=== PATIENT | female | born 1960 | race Caucasian/White ===

== ENCOUNTER → 2021-03-08 16:50 | Outpatient (CLI) | payer OTHER, SELFPAY ==
--- NOTE | ~2021-03-08 | MM_ITS ---
EXAMINATION: MM screening [facility] w maxine HISTORY: Screening mammogram TECHNIQUE: Craniocaudal and mediolateral oblique 3-D tomosynthesis images were obtained and synthetic 2-D images were generated. CAD analysis was submitted and interpreted. COMPARISON: 09/22/2019, 08/12/2018, 04/28/2016 bilateral digital screening mammogram examinations BREAST PARENCHYMAL COMPOSITION: The breasts are almost entirely fatty. FINDINGS: Chronic benign occasional calcifications. There is no evidence of suspicious mass, calcific ation, or architectural distortion to suggest malignancy in either breast. There has been no suspicio us interval change. IMPRESSION: 1. No mammographic evidence of malignancy. 2. Recommend routine screening mammography in one year. BI-RADS Category 2: Benign finding(s). Reviewed, dictated and finalized at location A.
== END ==
PROVIDERS: PCP Physician Assistant; Visit Provider Physician Assistant
DX: Z12.31 Encounter for screening mammogram for malignant neoplasm of breast (principal)
CPT/HCPCS: 77063; 77067

== ENCOUNTER → 2022-04-26 14:59 | Outpatient (CLI) | payer OTHER, SELFPAY ==
--- NOTE | ~2022-04-26 | MM_ITS ---
EXAMINATION: MM screening [facility] w [facility] HISTORY: Screening mammogram TECHNIQUE: Craniocaudal and mediolateral oblique 3-D tomosynthesis images were obtained and synthetic 2-D images were generated. CAD analysis was submitted and interpreted. COMPARISON: 03/08/2021, 09/22/2019, 08/12/2018 bilateral screening mammogram examinations BREAST PARENCHYMAL COMPOSITION: The breasts are almost entirely fatty. FINDINGS: Chronic occasional benign calcifications. There is no evidence of suspicious mass, calcific ation, or architectural distortion to suggest malignancy in either breast. There has been no suspicio us interval change. IMPRESSION: 1. No mammographic evidence of malignancy. 2. Recommend routine screening mammography in one year. BI-RADS Category 2: Benign finding(s). Reviewed, dictated and finalized at location B.
== END ==
PROVIDERS: PCP Physician Assistant; Visit Provider Physician Assistant
DX: Z12.31 Encounter for screening mammogram for malignant neoplasm of breast (principal)
CPT/HCPCS: 77063; 77067

== ENCOUNTER → 2023-07-09 12:21 | Outpatient (CLI) | payer OTHER, SELFPAY ==
--- NOTE | ~2023-07-09 | MM_ITS ---
EXAMINATION: MM screening [facility] w [facility] HISTORY: Screening mammogram TECHNIQUE: Craniocaudal and mediolateral oblique 3-D tomosynthesis images were obtained and synthetic 2-D images were generated. CAD analysis was submitted and interpreted. COMPARISON: 04/26/2022, 03/08/2021, 09/22/2019 bilateral screening mammogram examinations BREAST PARENCHYMAL COMPOSITION: The breasts are almost entirely fatty. FINDINGS: There is no evidence of suspicious mass, calcification, or architectural distortion to sugg est malignancy in either breast. There has been no suspicious interval change. IMPRESSION: 1. No mammographic evidence of malignancy. 2. Recommend routine screening mammography in one year. BI-RADS Category 1: Negative Reviewed, dictated and finalized at location A.
== END ==
PROVIDERS: PCP Physician Assistant; Visit Provider Physician Assistant
DX: Z12.31 Encounter for screening mammogram for malignant neoplasm of breast (principal)
CPT/HCPCS: 77063; 77067

== ENCOUNTER 2024-04-11 10:12 | Emergency (ER) | payer MEDICARE, SELFPAY ==
[2024-04-11 10:43] VITALS: BP 135/67; PULSE 91; RESP 16; TEMP 36.3; O2SAT 100
--- NOTE | 2024-04-11 11:02 | ED.SKABFB ---
HPI - Skin/Abscess/Foreign Bdy General Chief complaint: Skin/Abscess/Foreign Body Stated complaint: right ankle rash Time Seen by Provider: 04/11/24 10:47 Source: patient and RN notes reviewed Mode of arrival: ambulatory Limitations: no limitations History of Present Illness HPI narrative: Patient presents today complaining of redness and rash to the right lower leg. She had a punch biopsy to the anterior lower leg 10 days ago and had some care instructions. Reports she had been applying a large Band-Aid to the area after cleaning it twice daily. Reports a few days ago she noted some redness and bumps to the area, likely an allergic reaction, so she had changed brands of adhesive bandage, but symptoms have not improved. Related Data Home Medications Medication Instructions Recorded Confirmed lovastatin 10 mg tablet 10 mg PO HS 04/11/24 04/11/24 Allergies Allergy/AdvReac Type Severity Reaction Status Date / Time No Known Allergies Allergy Unverified 05/09/15 10:17 Review of Systems Review of Systems: CONSTITUTIONAL: Denies body aches, fever, chills, or sweats. EYES: Denies visual changes, redness, or discharge. ENT: Denies rhinorrhea, congestion, sore throat, or otalgia. CARDIOVASCULAR: Denies chest pain, palpitations, or edema. RESPIRATORY: Denies cough or dyspnea. GASTROINTESTINAL: Denies abdominal pain, nausea, vomiting, or diarrhea. GENITOURINARY: Denies dysuria or hematuria. SKIN: Rash right lower leg MUSCULOSKELETAL: Denies back pain, joint pain, or myalgia. NEUROLOGIC: Denies headache, numbness, tingling, or weakness. PSYCH: Denies depression or anxiety. PMFSH Comments At time of signature, I have reviewed and agree with nursing past medical, surgical, social and family history unless otherwise noted. Please see nursing chart for further information. There is no relevant family history pertinent to the presenting complaint Exam Narrative: GENERAL: Well-appearing, well-nourished, and in no acute distress. HEAD: Normocephalic, atraumatic. EYES: EOMI. No redness or drainage. Conjunctivae normal. ENT: Mucous membranes pink and moist. NECK: Normal AROM. CHEST: No respiratory distress. EXTREMITIES: Normal range of motion. No edema. SKIN: Warm, dry. Capillary refill normal. Normal skin turgor. Large punch biopsy area to the anterior lower leg surrounded with some hyperpigmentation and erythematous maculopapular rash in the shape of a large adhesive dressing. No edema or erythema to suggest infection. NEURO: No focal deficits. Alert and oriented x3. Gait steady. PSYCH: Normal affect. No signs of depression or anxiety. Course Course Level of Care: Express Care Visit Vital Signs Vital signs: Vital Signs Temperature 97.4 F L 04/11/24 10:43 Pulse Rate 91 04/11/24 10:43 Respiratory Rate 16 04/11/24 10:43 Blood Pressure 135/67 04/11/24 10:43 Pulse Oximetry 100 04/11/24 10:43 Oxygen Delivery Room Air 04/11/24 10:43 Temperature 97.4 F L 04/11/24 10:43 Pulse Rate 91 04/11/24 10:43 Respiratory Rate 16 04/11/24 10:43 Blood Pressure 135/67 04/11/24 10:43 Pulse Oximetry 100 04/11/24 10:43 Oxygen Delivery Room Air 04/11/24 10:43 Reviewed MDM - Skin/Abscess/Foreign Bdy MDM Narrative Medical decision making narrative: Exam is consistent with contact dermatitis surrounding punch biopsy sites. Patient is having a hard time keeping and nonadherent dressing in place. New dressing has been applied at [facility] with instructions given to patient. ED precautions given Differential Diagnosis Differential diagnosis: Likely abscess of skin or subcutaneous tissue, cellulitis, eczema and contact dermatitis Critical Care Time Critical Care Time Critical Care Time: No Discharge Plan Discharge Clinical Impression: Contact dermatitis Qualifiers: Contact dermatitis type: unspecified Contact dermatitis trigger: adhesive Qualified Code(s): L23.1 - Allerg
== END 2024-04-11 11:10 | disposition home or self-care (01) ==
PROVIDERS: Emergency Provider Nurse Practitioner
DX: L23.1 Allergic contact dermatitis due to adhesives (principal); E78.00 Pure hypercholesterolemia, unspecified
CPT/HCPCS: 99211; G0463

== ENCOUNTER 2024-10-07 12:39 | Outpatient (CLI) | payer MEDICARE, SELFPAY ==
--- NOTE | ~2024-10-07 | MM_ITS ---
EXAMINATION: MM screening [facility] BI w maxine HISTORY: Screening TECHNIQUE: Craniocaudal and mediolateral oblique 3-D tomosynthesis images were obtained and synthetic 2-D images were generated. CAD analysis was submitted and interpreted. COMPARISON: Comparison to multiple prior studies sequentially, with oldest reviewed study dated 04/28. BREAST PARENCHYMAL COMPOSITION: Not dense: There are scattered areas of fibroglandular density. FINDINGS: There is no evidence of suspicious mass, calcification, or architectural distortion to sugg est malignancy in either breast. There has been no suspicious interval change. IMPRESSION: 1. No mammographic evidence of malignancy. 2. Recommend routine screening mammography in one year. BI-RADS Category 1: Negative Reviewed, dictated and finalized at location A. T IRONER
== END 2024-10-07 12:40 | disposition home or self-care (01) ==
LOC: MICIMG 12:41
PROVIDERS: Visit Provider Physician Assistant
DX: Z12.31 Encounter for screening mammogram for malignant neoplasm of breast (principal)
CPT/HCPCS: 77063; 77067

== ENCOUNTER 2025-03-25 13:33 | Outpatient (CLI) | payer MEDICARE, SELFPAY ==
--- NOTE | ~2025-03-25 | DEXA_ITS ---
Bone Density Report Name: FALLON JULES Age: 64 Sex: Female Ethnicity: White Date of : 1960 Indication: postmenopausal; screening for osteoporosis; height loss; Referring Provider: KAISER, MARIBEL Study: Bone densitometry was performed. Exam Date: March 25, 2025 Accession number: [id number] Bone Density: Region BMD T-score Z-score Classification AP Spine(L1, L2, L3) 1.256 2.2 4.0 Normal Femoral Neck (Left) 0.978 1.2 2.7 Normal Total Hip (Left) 0.964 0.2 1.5 Normal Femoral Neck (Right) 0.959 1.0 2.6 Normal Total Hip (Right) 0.956 0.1 1.4 Normal Total Hip Mean 0.960 0.2 1.5 Normal World Health Organization criteria for BMD impression classify patients as: Normal (T-score at or above -1.0), Osteopenia (T-score between -1.0 and -2.5), or Osteoporosis (T-score at or below -2.5). 10-year Fracture Risk: FRAX not reported because: All T-scores for Spine Total, Hip Total, Femoral Neck at or above -1.0 Clinical Information Provided by Patient: Has used the following medications: Vitamin D, Calcium Patient maximum height was 66 Menopause Age: 50 No regular weight bearing exercise Drinks caffeinated beverages Onset of menses at age 10 Number of children 1 Impression: The patient has normal bone mass. Discussion: BONE DENSITY IS ABOVE THE MINIMUM DESIRABLE LEVEL AT ALL SKELETAL SITES TESTED. This patient?s bone mineral density is above the minimum desirable level (T-score -1.0 or better) at all sites measured. The patient should follow a healthful lifestyle (good nutrition with adequate calcium and vitamin D, and appropriate weight-bearing exercise). Follow-Up: Consider repeating this study in 5 years or sooner if there is some new clinical indication. Reported by: NEGRO on 03/25/2025 2:18:00 PM. Reviewed, dictated and finalized at location A.
--- OUTSIDE RECORDS SUMMARY | 2025-03-25 13:40 | XMS_ITS | Clinical Summary ---
Author Organization [facility] Address [address] [place] [id number] Care Team Providers Care Kayak Maker Name Role Phone Unavailable Primary Care Provider Unavailabl e Social History Tobacco Use Types Packs/Day Years Used Date Smoking Tobacco: Never Assessed Comments Unknown Sex and Gender Information Value Date Recorded Sex Assigned at Not on file Legal Sex Female 7:14 PM CDT Gender Identity Not on file Sexual Orientation Not on file Last Filed Vital Signs Vital Sign Reading Time Taken Comments Blood Pressure 122/84 05/27/2017 4:04 PM CDT Pulse 68 05/27/2017 4:04 PM CDT Temperature - - Respiratory Rate - - Oxygen Saturation - - Inhaled Oxygen Concentration - - Weight 84.8 kg (187 lb) 05/27/2017 4:04 PM CDT Height 170.2 cm (5' 7) 05/27/2017 4:04 PM CDT Body Mass Index 29.29 05/27/2017 4:04 PM CDT Plan of Treatment Health Maintenance Due Date Last Done Comments Colorectal Cancer Screening Colonoscopy (10 Years) 1958 Hepatitis C 1976 DTaP, Tdap and Td Vaccines ( 1 - Tdap) 1977 Mammogram Screening 1998 Pneumococcal Vaccine: 50+ Ye ars (1 of 1 - PCV) 2008 Zoster Vaccines (1 of 2) 2008 Dexa Scan (General) 12/23/2023 COVID-19 Vaccine ( - 2023-2 5 season) 2024 RSV Immunization or 60+ Years (1 - 1-dose 75+ series) 2033 Meningococcal B Vaccine Aged Out No l onger eligible based on patient's age to complete this topic Meningococcal Vaccine Aged Out No elvi chrissy eligible based on patient's age to complete this topic RSV Immunizations Under 20 Months Aged Out No longer eligible based on patient's age to complete this topic
--- OUTSIDE RECORDS SUMMARY | 2025-03-25 13:40 | XMS_ITS | Data Portability ---
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 due next year. due for pneumonia vaccine RSV due covid booster due Mammogram due. pap smear due eye exam updated. just got new glasses. wrinkle in retina and astigmatism. dental visit UTD recently. Not available 02/27/2024 10:39:28 03/15/2025 03/15/2025 Tdap up-to-date I examined dental up-to-date Not available 03/15/2025 10:46:56 Plan of Treatment Reminders Order Date Submit Date Provider Last Modified By Organization Details Last Modified Time Details Appointments ANY 15 2025 09:30A M JOAN Camarena Not available Not available Not available Lab CBC w/ auto diff 2024 025 [facility], [address], [address], [place], [address], 03/19/2025 07:07:32 hepatic function panel, serum 2024 025 [facility], [address], [address], [place], [address], 03/19/2025 07:07:29 BMP, serum or plasma 2024 025 [facility], [address], [address], [place], [address], 03/19/2025 07:07:31 TSH + free T4, serum 2024 025 [facility], [address], [address], [place], [address], 03/19/2025 07:07:28 lipid panel, serum 2024 025 [facility], [address], [address], [place], [address], 03/19/2025 07:07:27 CBC w/ auto diff 2023 024 [facility], [address], [address], [place], [address], 03/17/2024 12:36:51 hepatic function panel, serum 2023 024 [facility], [address], [address], [place], [address], 03/17/2024 12:36:50 BMP, serum or plasma 2023 024 [facility], [address], [address], [place], [address], 03/17/2024 12:36:50 TSH + free T4, serum 2023 024 [facility], [address], [address], [place], [address], 03/17/2024 12:36:49 lipid panel, serum 2023 024 [facility], [address], [address], [place], [address], 03/17/2024 12:36:49 noninvasi ve colorecta l cancer DNA + occult blood screening , QL, stool 2023 024 [facility] (Cologuard Orders Only), [address], [address], [place], [address], 04/17/2024 06:29:32 Referral dermatolo gist referral 2023 024 [email or web address], [facility] [place], [address], 07/03/2024 10:22:00 Procedures None recorded. Surgeries None recorded. Imaging MAMMO, screening , digital, bilateral 2024 026 [email or web address] [facility], [address], [address], [place], [address], 03/15/2025 11:52:40 MAMMO, screening , digital, bilateral 2023 024 [facility], [address], [address], [place], [address], 11/26/2024 17:31:17 DEXA 2023 024 [email or web address], [address], [address], [place], [address], 03/15/2025 10:28:44 Medication Orders None recorded. Patient TargetsNo targets recorded. Patient Instructions Encounter Date Encounter Id Patient Instructions Last Modified By Organization Details Last Modified Time 02/27/2024 [id number] preventing falls : care instructions Not available 02/27/2024 11:10:13 Medicare Wellnes s Preventive Checklist Not available 02/27/2024 11:10:13 A healthy lifestyle: care instructions Not available 02/27/2024 11:10:13 03/15/2025 [id number] A healthy lifestyle: care instructions Not available 03/15/2025 10:46:22 Reason for Referral Research Subject Referral for L esion of skin of face Referring Physician: Leena Gonzalez, Internal Medicine, Encounter Date: 02/27/2024 Results Created Date Observation Date Name Description Value Unit Range Abnormal Flag Note LastModifiedBy Organization Detail LastModifiedTime 03/16/20 24 03/17/2024 TSH+F REE T4 TSH 1.750 uIU/m L 0.450- 4.500 Not Available [facility] ([facility]) [address] [place], [address], 03/17/2024 12:36:49 03/16/20 24 03/17/2024 TSH+F REE T4 T4,free(dire ct) 0.96 NG/dL 0.82-1 .77 Not Available [facility] ([facility]) [address] [place], [address], 03/17/2024 12:36:49 03/16/20 24 03/17/2024 LIPID PANEL cholesterol, total 184 mg/dL 100-19 9 Not Available [facility] ([facility]) [address] [place], [address], 03/17/2024 12:36:49 03/16/20 24 03/17/2024 LIPID PANEL triglyceride s 247 mg/dL 0-149 above high normal Not Available [facility] ([facility]) [address] [place], [address], 03/17/2024 12:36:49 03/16/20 24 03/17/2024 LIPID PANEL HDL cholesterol 41 mg/dL >39 Not Available [facility] ([facility]) [address] [place], [address], 03/17/2024 12:36:49 03/16/20 24 03/17/2024 LIPID PANEL VLDL cholesterol joshua 42 mg/dL 5-40 above high normal Not Available [facility] ([facility]) [address] [place], [address], 03/17/2024 12:36:49 03/16/20 24 03/17/2024 LIPID PANEL LDL chol calc ([facility]) 101 mg/dL 0-99 above high normal Not Available [facility] ([facility]) [address] [place], [address], 03/17/2024 12:36:49 03/16/20 24 03/17/2024 HEPAT IC FUNCT ION PANEL (7) protein, total 6.9 g/dL 6.0-8. 5 Not Available [facility] ([facility]) [address] [place], [address], 03/17/2024 12:36:50 03/16/20 24 03/17/2024 HEPAT IC FUNCT ION PANEL (7) albumin 4.6 g/dL 3.9-4. 9 Not Available [facility] ([facility]) [address] [place], [address], 03/17/2024 12:36:50 03/16/20 24 03/17/2024 HEPAT IC FUNCT ION PANEL (7) bilirubin, total 0.4 mg/dL 0.0-1. 2 Not Available [facility] ([facility]) [address] [place], [address], 03/17/2024 12:36:50 03/16/20 24 03/17/2024 HEPAT IC FUNCT ION PANEL (7) bilirubin, direct 0.11 mg/dL 0.00-0 .40 Not Available [facility] ([facility]) [address] [place], [address], 03/17/2024 12:36:50 03/16/20 24 03/17/2024 HEPAT IC FUNCT ION PANEL (7) alkaline phosphatase 81 IU/L 44-121 Not Available [facility] ([facility]) [address] [place], [address], 03/17/2024 12:36:50 03/16/20 24 03/17/2024 HEPAT IC FUNCT ION PANEL (7) AST (SGOT) 27 IU/L 0-40 Not Available [facility] ([facility]) [address] [facility] [place], [address], 03/17/2024 12:36:50 03/16/20 24 03/17/2024 HEPAT IC FUNCT ION PANEL (7) ALT (SGPT) 39 IU/L 0-32 above high normal Not Available [facility] ([facility]) [address] [facility], [address], 03/17/2024 12:36:50 03/16/20 24 03/17/2024 BMP7+ EGFR glucose 88 mg/dL 70-99 Not Available [facility] ([facility]) [address] [facility], [address], 03/17/2024 12:36:50 03/16/20 24 03/17/2024 BMP7+ EGFR BUN 19 mg/dL 8-27 Not Available [facility] ([facility]) [address] [facility] [place], [address], 03/17/2024 12:36:50 03/16/20 24 03/17/2024 BMP7+ EGFR creatinine 1.02 mg/dL 0.57-1 .00 above high normal Not Available [facility] ([facility]) [address] [facility] [place], [address], 03/17/2024 12:36:50 03/16/20 24 03/17/2024 BMP7+ EGFR eGFR 61 mL/mi n/1.7 3 >59 Not Available [facility] ([facility]) [address] [facility] [place], [address], 03/17/2024 12:36:50 03/16/20 24 03/17/2024 BMP7+ EGFR sodium 141 mmol/ L 134-14 4 Not Available [facility] ([facility]) [address] [facility] [place], [address], 03/17/2024 12:36:50 03/16/20 24 03/17/2024 BMP7+ EGFR potassium 4.6 mmol/ L 3.5-5. 2 Not Available [facility] ([facility]) [address] [facility], [place], [address], 03/17/2024 12:36:50 03/16/20 24 03/17/2024 BMP7+ EGFR chloride 103 mmol/ L 96-106 Not Available [facility] ([facility]) [address] [facility], [place], [address], 03/17/2024 12:36:50 03/16/20 24 03/17/2024 BMP7+ EGFR carbon dioxide, total 25 mmol/ L 20-29 Not Available [facility] ([facility]) [address] [facility], [place], [address], 03/17/2024 12:36:50 03/16/20 24 03/17/2024 CBC WITH DIFFE RENTI AL/PL ATELE T WBC 4.7 x10e3 /uL 3.4-10 .8 Not Available [facility] ([facility]) [address] [facility], [place], [address], 03/17/2024 12:36:51 03/16/20 24 03/17/2024 CBC WITH DIFFE RENTI AL/PL ATELE T RBC 4.58 x10e6 /uL 3.77-5 .28 Not Available [facility] ([facility]) [address] [facility], [place], [address], 03/17/2024 12:36:51 03/16/20 24 03/17/2024 CBC WITH DIFFE RENTI AL/PL ATELE T hemoglobin 13.7 g/dL 11.1-1 5.9 Not Available [facility] ([facility]) [address] [facility], [place], [address], 03/17/2024 12:36:51 03/16/20 24 03/17/2024 CBC WITH DIFFE RENTI AL/PL ATELE T hematocrit 41.4 % 34.0-4 6.6 Not Available [facility] ([facility]) [address] [place], [address], 03/17/2024 12:36:51 03/16/20 24 03/17/2024 CBC WITH DIFFE RENTI AL/PL ATELE T MCV 90 fL 79-97 Not Available [facility] ([facility]) [address] [facility], [place], [address], 03/17/2024 12:36:51 03/16/20 24 03/17/2024 CBC WITH DIFFE RENTI AL/PL ATELE T MCH 29.9 pg 26.6-3 3.0 Not Available [facility] ([facility]) [address] [facility], [place], [address], 03/17/2024 12:36:51 03/16/20 24 03/17/2024 CBC WITH DIFFE RENTI AL/PL ATELE T MCHC 33.1 g/dL 31.5-3 5.7 Not Available [facility] ([facility]) [address] [place], [address], 03/17/2024 12:36:51 03/16/20 24 03/17/2024 CBC WITH DIFFE RENTI AL/PL ATELE T RDW 13.5 % 11.7-1 5.4 Not Available [facility] ([facility]) [address] [place], [address], 03/17/2024 12:36:51 03/16/20 24 03/17/2024 CBC WITH DIFFE RENTI AL/PL ATELE T platelets 155 x10e3 /uL 150-45 0 Not Available [facility] ([facility]) [address] [facility], [place], [address], 03/17/2024 12:36:51 03/16/20 24 03/17/2024 CBC WITH DIFFE RENTI AL/PL ATELE T neutrophils 48 % notest ab. Not Available [facility] ([facility]) [address] [facility], [place], [address], 03/17/2024 12:36:51 03/16/20 24 03/17/2024 CBC WITH DIFFE RENTI AL/PL ATELE T lymphs 39 % notest ab. Not Available [facility] ([facility]) [address] [facility], [place], [address], 03/17/2024 12:36:51 03/16/20 24 03/17/2024 CBC WITH DIFFE RENTI AL/PL ATELE T monocytes 11 % notest ab. Not Available [facility] ([facility]) [address] [facility], [place], [address], 03/17/2024 12:36:51 03/16/20 24 03/17/2024 CBC WITH DIFFE RENTI AL/PL ATELE T eos 1 % notest ab. Not Available [facility] ([facility]) [address] [facility], [place], [address], 03/17/2024 12:36:51 03/16/20 24 03/17/2024 CBC WITH DIFFE RENTI AL/PL ATELE T basos 1 % notest ab. Not Available [facility] ([facility]) [address] [facility], [place], [address], 03/17/2024 12:36:51 03/16/20 24 03/17/2024 CBC WITH DIFFE RENTI AL/PL ATELE T neutrophils (absolute) 2.2 x10e3 /uL 1.4-7. 0 Not Available [facility] ([facility]) [address] [facility], [place], [address], 03/17/2024 12:36:51 03/16/20 24 03/17/2024 CBC WITH DIFFE RENTI AL/PL ATELE T lymphs (absolute) 1.8 x10e3 /uL 0.7-3. 1 Not Available [facility] ([facility]) [address] [facility], [place], [address], 03/17/2024 12:36:51 03/16/20 24 03/17/2024 CBC WITH DIFFE RENTI AL/PL ATELE T monocytes(ab solute) 0.5 x10e3 /uL 0.1-0. 9 Not Available [facility] ([facility]) [address] [facility], [place], [address], 03/17/2024 12:36:51 03/16/20 24 03/17/2024 CBC WITH DIFFE RENTI AL/PL ATELE T eos (absolute) 0.0 x10e3 /uL 0.0-0. 4 Not Available [facility] ([facility]) [address] [facility], [place], [address], 03/17/2024 12:36:51 03/16/20 24 03/17/2024 CBC WITH DIFFE RENTI AL/PL ATELE T baso (absolute) 0.1 x10e3 /uL 0.0-0. 2 Not Available [facility] ([facility]) [address] [facility], [place], [address], 03/17/2024 12:36:51 03/16/20 24 03/17/2024 CBC WITH DIFFE RENTI AL/PL ATELE T immature granulocytes 0 % notest ab. Not Available [facility] ([facility]) [address] [facility], [place], [address], 03/17/2024 12:36:51 03/16/20 24 03/17/2024 CBC WITH DIFFE RENTI AL/PL ATELE T immature grans (abs) 0.0 x10e3 /uL 0.0-0. 1 Not Available [facility] ([facility]) [address] [facility], [place], [address], 03/17/2024 12:36:51 04/07/20 24 04/07/2024 COLOG UARD cologuard result reportable NEGATI VE negati ve normal NEGAT FERMIN TEST RESUL T. A negat fermin Colog uard resul t indic ates a low likel ihood that a color ectal cance r (CRC) or advan ludwig adeno ma (marshall omato us polyp s with more advan ludwig pre-m align ant featu res) is prese nt. The [facility] e that a perso n with a negat fermin Colog uard test has a color ectal cance r is less than 1 in 1500 (nega tive predi ctive value >99.9 %) or has an advan ludwig adeno ma is less than 5.3% (nega tive predi ctive value 94.7% ). These data are based on a prosp ectiv e cross -sect ional study of ,00 0 ind[facility]ual s at [facility] risk for color ectal cance r who were scree geno with both Colog uard and colon oscop y. (Mahin Leach. et al, N Engl J Med 2014; 370(1 4):12 86-12 97) The barbara l value (refe rence range ) for this assay is negat fermin. COLOG UARD RE-SC REENI NG RECOM MENDA TION: Perio dic color ectal cance r scree deejay is an impor tant part of preve ntive healt hcare for asymp tomat ic indiv idual s at [place] risk for color ectal cance r. Follo wing a negat fermin Colog uard resul t, the Ameri can Cance r Socie ty and U.S. Multi -Soci ety Task Force scree deejay guide lines recom mend a Colog uard re-sc reeni ng inter jag of 3 years . Refer ences : Ameri can Cance r Socie ty Guide line for Color ectal Cance r Scree deejay: https ://lindsay kilpatrick.can cer.o rg/ca ncer/ colon -rect al-ca ncer/ detec tion- diagn osis- stagi ng/ac s-rec ommen datio ns.ht ml.; Ulises BAH, Meggan FALL, Nixon CASTILLO, Color ectal Cance r Scree deejay: Recom menda tions for Physi cians and Patie nts from the U.S. Multi -Soci ety Task Force on Color ectal Cance r Screamy baileyg , Watson haro y 2017; 112:1 016-1 030. TEST DESCR IPTIO N: Kevin site algor ithmi c duane sis of stool DNA-b ioalysa kers with hemog lobin immun oassa y. Quant itati ve value s of indiv idual bioma rkers are not repor table and are not assoc iated with indiv idual bioma rker resul t refer ence range s. Colog uard is inten ded for color ectal cance r scree deejay of adult s of eithe r sex, 45 years or older , who are at [facility] for color ectal cance r (CRC) . Colog uard has been appro shani for use by the U.S. FDA. The perfo rmanc e of Colog uard was estab lishe d in a cross secti onal study of [facility] adult s aged 50-84 . Colog uard perfo rmanc e in patie nts ages 45 to 49 years was estim ated by sub-g roup duane sis of near- age group s. Colon oscop ies perfo rmed for a posit fermin resul t may find as the most clini ariana signi fican t lesio n: color ectal cance r [4.0% ], advan ludwig adeno ma (incl uding sessi le marcio zeke polyp s great er than or equal to 1cm diame ter) [20%] or non- advan ludwig adeno ma [31%] ; or no color ectal neopl demetris [45%] . These estim ates are deriv ed from a prosp ectiv e cross -sect ional scree deejay study of 10,00 0 indiv idual s at [facility] risk for color ectal cance r who were scree geno with both Colog uard and colon oscop y. (Mahin Ngo al, N Engl J Med 2014; 370(1 4):12 86-12 97.) Colog uard may produ ce a false negat fermin or false posit fermin resul t (no color ectal cance r or preca ncero us polyp prese nt at colon oscop y follo w up). A negat fermin Colog uard test resul t does not guara ntee the absen ce of CRC or advan ludwig adeno ma (pre- cance r). The curre nt Colog uard scree deejay inter jag is every 3 years . (Amer ican Cance r Socie ty and U.S. Multi -Soci ety Task Force ). Colog uard perfo rmanc e data in a 10,00 0 patie nt pivot al study using colon oscop y as the refer ence metho d can be acces sed at the follo wing locat ion: www.e xactl abs.c om/re neo . Addit ional descr iptio n of the Colog uard test proce ss, warni ngs and preca ution s can be found at www.c ologu yamel.c om. Not Available [facility] (Cologuard Orders Only) [address], [place], [address], 04/17/2024 06:29:31 02/27/20 24 07/09/2023 MAMMO , scree deejay, digit al, bilat eral No observ ation record ed. BARCODE Not Available 2023 17:58:32 11/27/19 25 10/07/2024 MAMMO , scree deejay, digit al, bilat eral No observ ation record ed. [facility] [address], [place], [address], 11/27/2024 11:22:50 Result Notes None recorded. Problems Name Problem SNOMED Code Status Onset Date Resolution Date Notes Provider Name and Address Organization Details Recorded Time Hyperlipide beth 73681594 Active 2023 JOAN Camarena Attn: Cynthia wilberto,[address], [place], [address], [facility] 4 10:27:01 Seasonal allergic rhinitis 527189505 Active 2023 JOAN Camarena Attn: Cynthia ladd,[address] [facility], [place], [address], [facility] 4 10:27:02 Body mass index 30+ - obesity 583842030 Active 2023 JOAN Camarena Attn: Cynthia g,[address] [facility], [place], [address], [facility] 4 10:27:03 Obesity 593694983 Active 2023 JOAN Camarena Attn: Accounthao g,[address] [facility], [place], [address], [facility] 4 10:27:04 Long-term drug therapy Active 2023 JOAN Camarena Attn: Cynthia g,[address] [facility], [place], [address], [facility] 4 01:10:30 Obese class I [id number] 07 Active 2024 JOAN Camarena Attn: Cynthia ladd,[address] [facility], [place], [address], [facility] 5 10:36:16 Problem Notes None recorded. Procedures Surgical History Date Name Laterality Status Provider Name and Address Organization Details Recorded Time cataract surgery completed [facility] 02/27/2024 10:55:13 D&c of cervical stump completed [facility] 02/27/2024 10:55:34 Imaging Results None recorded. Procedure Notes None recorded. Medical Equipment None Reported. Allergies No known drug allergies Medications Name Sig Start Date Stop Date Status Note LastModified by Organization Details LastModified Time lovastatin 10 mg tablet Take 1 tablet every day by oral route for 90 days. active Not Available Not Available No t Available aspirin active otc Not Available Not Avail able Not Available diclofenac 1 % topical gel APPLY 4 GRAMS TOPICALLY TO AFFECTED AREA 4 TIMES DAILY NEEDED 02/25 completed Not Available Not Available Not Available Vitals Date Recorded Systolic And Diastolic Provider Name and Address Organization Details Last Updated DateTime 02/27/2024 120/80 mm[Hg] JOAN Camarena Attn: Accounting,[address] [place], [address], [facility] 02/27/2024 10:39:35 Date Recorded Body height Respiratory rate Oxygen saturation Oxygen saturation in Arterial blood by Pulse oximetry Heart rate Body mass index (BMI) Body weight Systolic And Diastolic Provider Name and Address Organization Details Last Updated DateTime 4 170.18 cm 20 /min 100 % 100 % 94 /min 31.8 kg/m2 31318.6 1 g 126/82 mm[Hg] Adalid Doyle MA [facility] 4 10:11:33 Date Recorded Systolic And Diastolic Provider Name and Address Organization Details Last Updated DateTime 03/15/2025 122/80 mm[Hg] JOAN Camarena Attn: Accounting,[address] [place], [address], [facility] 03/15/2025 10:47:02 Date Recorded Body weight Body mass index (BMI) Body height Respiratory rate Oxygen saturation Oxygen saturation in Arterial blood by Pulse oximetry Heart rate Systolic And Diastolic Provider Name and Address Organization Details Last Updated DateTime 5 43079.7 2 g 30.5 kg/m2 170.18 cm 20 /min 98 % 98 % 62 /min 118/82 mm[Hg] Adalid Doyle MA [facility] 5 10:33:48 Social History Question Answer Notes LastModified by Organizat ion Details LastModified Time Tobacco Smoking Status Never Smoker Adalid Doyle MA null, [facility] 02/26/2024 10:51:57 Do You Have An Advance Directive? Yes Trust Information not available 02/26/2024 Are You Blind Or Do You Have Difficulty Seeing? No Information not available 02/26/2024 What Is Your Level Of Caffeine Consumption? Moderate Soda/coffe e Information not available 02/26/2024 In The 14 Days Before Symptom Onset, Have You Had Close Contact With A Laboratory-confir [facility] COVID-19 While That Case Was Ill? No Information not available 02/26/2024 In The 14 Days Before Symptom Onset, Have You Had Close Contact With A Person Who Is Under Investigation For COVID-19 While That Person Was Ill? No Information not available 02/26/2024 Have You Been To An Area Known To Be High Risk For COVID-19? No Information not available 02/26/2024 Are You Deaf Or Do You Have Serious Difficulty Hearing? No Information not available 02/26/2024 What Type Of Diet Are You Following? REGULAR Information not available 02/26/2024 What Is The Highest Grade Or Level Of School You Have Completed Or The Highest Degree You Have Received? [id number] Information not available 02/27/2024 Are There Any Guns Present In Your Home? Yes Locked Up In Closet Information not available 02/27/2024 In The Past 7 Days, How Many Days Did You Exercise? 7 Information not available 02/27/2024 On The Days When You Exercised, How Long Did You Exercise Each Day (in Minutes)? 30 Information not available 02/27/2024 How Intense Was Your Typical Exercise? Moderate (brisk Walking) Information not available 02/27/2024 In The Past 7 Days, How Much Pain Have You [place]? Some Information not available 02/27/2024 In General, Would You Say You Health Is: Very Good Information not available 02/27/2024 How Would You Describe The Condition Of Your Mouth And Teeth- Including False Teeth Or Dentures? Very Good Information not available 02/27/2024 Each Night, How Many Hours Of Sleep Do You Get? 7 Information no t available 02/27/2024 Has Anyone Ever Told You That You Snore? Yes Information not available 02/27/2024 In The Past 7 Days, How Often Have You [place] Sleepy In The Daytime? Rarely Information not available 02/27/2024 # Alcohol Drinks Per Week 0 Information not available 02/27/2024 What Was The Date Of Your Most Recent Tobacco Screening? 03/15/2025 Information not available 03/15/2025 What Is Your Relationship Status? Single Information not available 02/27/2024 Do You Use Your Seat Belt Or Car Seat Routinely? Yes Information not available 02/26/2024 Do You Have Smoke And Carbon Monoxide Detectors In Your Home? Yes Information not available 02/26/2024 Do You Use Sunscreen Routinely? No Information not available 02/27/2024 Has Tobacco Cessation Counseling Been Provided? No Information not available 02/27/2024 On What Date Was Tobacco Cessation Counseling Provided? 03/15/2025 Information not available 03/15/2025 Sex: Female Functional Status Question Answer Note LastModified by Organizat ion Details LastModified Time Do you use any illicit or recreational drugs? No Information not available 02/26/2024 Do you or have you ever used any other forms of tobacco or nicotine? No Information not available 02/26/2024 What is your level of alcohol consumption? None Information not available 02/27/2024 Are you currently employed? No Retired Information not available 02/27/2024 Are you able to care for yourself? Yes Information not available 02/26/2024 What is your exercise level? Moderate 30 minutes daily Information not available 02/27/2024 Mental Status Question Answer Note LastModified by Organization D etails LastModified Time Do you feel stressed (tense, restless, nervous, or anxious, or unable to sleep at night)? [id number] Information not available 02/27/2024 Family History Relationship Description Onset Age of this Age Resolved Age Notes LastModified by Organization Details LastModified Time Mother Malignant tumor of stomach Not available 2023 10:46:39 Maternal Grandmother Malignant tumor of colon Not available 2023 10:46:56 Maternal Grandfather Heart disease Not available 2023 10:47:08 Father Parkinson's disease Not available 2023 10:47:25 Father Heart disease Not available 2023 10:47:29 Sister Neoplasm of pituitary gland it has reoccu rred recent ly tcarterma Not available 03/15/2025 10:30:15 Sister Diabetes mellitus Not available 2023 10:48:01 Sister Cerebrovascu lar accident Not available 10:48:08 Sister Myocardial infarction Not available 02/26 10:48:16 Son Malignant neoplasm of prostate tcarterma Not available 2024 10:29:56 Medical History Condition Response Coronary Artery Disease N Other N High Blood Pressure N Atrial Fibrillation N Kidney or Bladder Problems N Thyroid Problems N GI Problems N Depression N COPD N Blood Clots N Skin Problems Y Anemia N Heart Attack ([place]) N Anxiety Disorder N Diabetes N Muscle, Joint, or Bone Problems N Seizures/Epilepsy N Acid Reflux (GERD) N Cancer N Stroke N Asthma N Allergies N High Cholesterol Y Hepatitis N Liver Disease N Headaches N Heart Failure N Osteoporosis N Gynecological History Statement/Question Response Menses Monthly N If Post Menopausal, Age at Menopause 48 Obstetrics History GPAL:G 0 P 0 0 0 0 Immunizations Vaccine Type Date Status Note Provider Nam e and Address Organization Details Recorded Time Influenza, split virus, trivalent, preservative 3 completed Not Available [facility] 03/15/2025 10:27:16 Tdap 5 completed Not Available [facility] 03/15/2025 10:27:16 Influenza, split virus, trivalent, preservative 5 completed Not Available [facility] 03/15/2025 10:27:16 Influenza, split virus, quadrivalent, preservative 6 completed Not Available [facility] 03/15/2025 10:27:16 Influenza, MDCK, quadrivalent, PF 7 completed Not Available [facility] 03/15/2025 10:27:16 Influenza, split virus, quadrivalent, PF 8 completed Not Available [facility] 03/15/2025 10:27:16 Influenza, MDCK, quadrivalent, preservative 9 completed Not Available [facility] 03/15/2025 10:27:16 zoster recombinant 0 completed Not Available [facility] 03/15/2025 10:27:16 zoster recombinant 0 completed Not Available [facility] 03/15/2025 10:27:16 COVID-19, mRNA, LNP-S, PF, 100 mcg/0.5mL dose or 50 mcg/0.25mL dose 1 completed Not Available [facility] 03/15/2025 10:27:16 COVID-19, mRNA, LNP-S, PF, 100 mcg/0.5mL dose or 50 mcg/0.25mL dose 1 completed Not Available [facility] 03/15/2025 10:27:16 Influenza, split virus, quadrivalent, PF 1 completed Not Available [facility] 03/15/2025 10:27:16 COVID-19, mRNA, LNP-S, PF, 100 mcg/0.5mL dose or 50 mcg/0.25mL dose 1 completed Not Available [facility] 03/15/2025 10:27:16 COVID-19, mRNA, LNP-S, PF, 100 mcg/0.5mL dose or 50 mcg/0.25mL dose 2 completed Not Available [facility] 03/15/2025 10:27:16 COVID-19, mRNA, LNP-S, bivalent, PF, 50 mcg/0.5 mL or 25mcg/0.25 mL dose 2 completed Not Available [facility] 03/15/2025 10:27:16 Influenza, MDCK, quadrivalent, PF 2 completed Not Available [facility] 03/15/2025 10:27:16 Influenza, split virus, quadrivalent, PF 3 completed Not Available [facility] 03/15/2025 10:27:16 COVID-19, mRNA, LNP-S, PF, 50 mcg/0.5 mL 3 completed Not Available [facility] 03/15/2025 10:27:16 Hep A-Hep B 4 completed Not Available [facility] 03/15/2025 10:27:16 Hep A-Hep B 4 completed Not Available [facility] 03/15/2025 10:27:16 Influenza, high-dose, trivalent, PF 4 completed Not Available [facility] 03/15/2025 10:27:16 COVID-19, mRNA, LNP-S, PF, 50 mcg/0.5 mL 4 completed Not Available [facility] 03/15/2025 10:27:16 Tdap 5 completed Not Available [facility] 03/15/2025 10:27:16 Hep A-Hep B 5 completed Not Available [facility] 03/15/2025 10:27:16 Pneumococcal conjugate PCV20, polysaccharide MDN129 conjugate, adjuvant, PF 4 completed JACINTO Segura, MD - [facility] 03/18/2024 10:47:11 Past Encounters Encounter ID Performer Location Encounter Start Date Encounter Closed Date Diagnosis/Indication Diagnosis SNOMED-CT Code Diagnosis ICD10 Code Diagnosis Note [id number] Oleksandr Saucedo MD [facility] [place] [address] [place] [id number] 02/27/2024 09:51:14 02/27/2024 11:43:26 Body mass index 30+ - obesity 341856701 Z68.31 bmi 31.8 Obesity 099853936 E66.8 discussed healthy diet, exercise, controllin g carbohydra jonas and added sugars in the diet Lesion of skin of face 1023609963 06 L98.9 refer to Derm for consult. Screening for malignant neoplasm of colon 509408974 Z12.11 pt opts for cologuard screening method. Hyperlipidemia 53778292 E78.5 stable on losartan 10mg daily. fasting labs are due. Adult heal th examination 000165774 Z00.01 MAJANE completed. Seasonal a llergic rhinitis 054511496 J30.2 stable on OTC agents antihistam ine. Long-term drug therapy 583725091 Z79.899 all routine labs are due. Screening mammography 24 696929 Z12.31 mammogram is due Screening for osteoporosis 960594159 Z13.820 dexa scan is due Administra tion of pneumococcal vaccine 54048510 Z23 prevnar 20 given today. [id number] Oleksandr Saucedo MD [facility] [place] [address] [place] [id number] 03/15/2025 10:07:03 03/15/2025 11:52:40 Obese class I [id number] 56490 E66.811 BMI 30.5 Adult heal th examination 678876356 Z00.01 Annual [facility] completed Hyperlipidemia 35345252 E78.5 stable on losartan 10mg daily. fasting labs are due. Seasonal a llergic rhinitis 722842766 J30.2 stable on OTC agents antihistam ine. Body mass index 30+ - obesity 201784554 Z68.31 BMI 30.5 Long-term drug therapy 882807086 Z79.899 all routine labs are due. Screening mammography 24 361814 Z12.31 mammogram is due in September Screening for osteoporosis 788530199 Z13.820 dexa scan is due Health Concerns Section Related Observation LastModified by Organization Detai ls LastModified Time None Recorded Concern Status LastModified by Organization Details LastModified Time None Recorded Advance Directives Directive Y: trust Payers Insurance Date Sequence Insurance Name Policy Number Policy Mims Covered Member ID Mims Member ID Guarantor Name 03/16/2025 1 [facility] (MEDICARE REPLACEMENT/ ADVANTAGE - HMO) [id number] Kristy Nash [id number] Kristy Nash Notes Date Note Type Note Provider Name and Address Organization Details Recorded Time 4 text/html MAW 2Reported bypatient.Diet and Nutrition:healthy diet Fracture Risk:no history of fractures; no sudden unexplained fractures Concentration and Memory:no decreased concentrating ability; no memory lapses or loss; does not forget words Speech/Motor difficulties:no speech difficulties; no difficulty expressing formulated concepts; no difficulty with fine manipulative tasks; no difficulty writing/copying; no slowed reaction time; does not knock things over when trying to pick them up Hearing:no loss of hearing Vision:worse both distance and near(glasses); astygmatism and wrinkle in retina; trouble driving at night Activities of Daily Living:able to bathe with limited or no assistance; able to contol urination and bowels; able to dress with limited or no assistance; able to feed self with limited or no assistance; able to get out of chair or bed with limited or no assistance; able to groom with limited or no assistance; able to toilet with limited or no assistance Instrumental Activities of Daily Living:able to do house work with limited or no assistance; able to grocery shop with limited or no assistance; able to manage medications with limited or no assistance; able to manage money with limited or no assistance; able to prepare meals with limited or no assistance; able to use the phone with limited or no assistance Falls Risk Assessment:no frequent falls while walking; no fall in the past year; no fall since last visit; no dizziness/vertigo Home Safety:no unsafe angel hazzards; no unsafe stairs; working smoke/CO detectors; practicing 'safer sex'; has hand bars in the bathroom/shower; good lighting in the home;fire arms JOAN Camarena Attn: [address]ing[address] [place], [address], [facility] 03/16/2024 01:10:54 text/html HyperlipidemiaReported bypatient.Notes:Patient is on low-dose lovastatin 10 mg daily and due for updated labs Patient here for her annual exam and lab orders and mammogram order JOAN Camarena Attn: [address] [facility], [place], [address], [facility] 03/15/2025 10:51:44 OBGyn Episode No OBEpisode recorded.
== END 2025-03-25 13:34 | disposition home or self-care (01) ==
LOC: ANHIMG 13:38
PROVIDERS: PCP Physician Assistant; Visit Provider Physician Assistant
DX: Z13.820 Encounter for screening for osteoporosis (principal); M81.0 Age-related osteoporosis without current pathological fracture
CPT/HCPCS: 77080